=== PATIENT | female | born 1970 | race Hispanic/Latino ===

== ENCOUNTER 2019-08-17 09:00 | Outpatient (CLI) | payer OTHER | END 2019-08-17 09:01 | disposition home or self-care (01) | LOC: DTY/OP 09:00 | PROVIDERS: ATTEND Nurse Practitioner Family | DX: K21.9 Gastro-esophageal reflux disease without esophagitis (principal); N39.3 Stress incontinence (female) (male); R60.9 Edema, unspecified; E78.2 Mixed hyperlipidemia; F50.2 Bulimia nervosa; E66.9 Obesity, unspecified; Z86.59 Personal history of other mental and behavioral disorders; Z68.29 Body mass index [BMI] 29.0-29.9, adult | CPT/HCPCS: 97802 ==